=== PATIENT | female | born 1995 | race Caucasian/White ===

== ENCOUNTER 2020-04-26 13:03 | Emergency (ER) | payer OTHER ==
[~2020-04-26] VITALS: Ht 157.5 cm; Wt 83.9 kg
[~2020-04-26 13:03] MED LIST: PEPCID20 MG PO
[2020-04-26] MEDS ORDERED: KETO10TA2 PO (15:21)
[2020-04-26] MEDS ORDERED: ORPHENADRINE C100 MG PO (15:21)
== END 2020-04-26 20:05 | disposition home or self-care (01) ==
LOC: ER 13:03
DX: S46.812A Strain of other muscles, fascia and tendons at shoulder and upper arm level, left arm, initial encounter (principal); X50.1XXA Overexertion from prolonged static or awkward postures, initial encounter; Y93.89 Activity, other specified; Y92.89 Other specified places as the place of occurrence of the external cause; Y99.8 Other external cause status